=== PATIENT | female | born 1945 | race Hispanic/Latino ===

== ENCOUNTER 2017-06-26 13:09 | Inpatient (IN) | payer MEDICARE ==
[~2017-06-26] VITALS: Ht 154.9 cm; Wt 88.0 kg
[2017-06-26 14:00] LABS: BASOPHILS % (AUTO) 0.6 % (0.0-5.0); EOSINOPHILS % (AUTO) 2.8 % (0.0-8.0); HEMATOCRIT 25.8 % (36-48); LYMPHOCYTES % (AUTO) 10.8 % (21.0-51.0); MEAN CORPUSCULAR HEMOGLOBIN 33.7 pg (27.0-33.0); MEAN CORPUSCULAR HGB CONC 34.2 g/dL (32.0-36.0); MEAN CORPUSCULAR VOLUME 98.6 fL (79-99); NEUTROPHILS % (AUTO) 78.8 % (40.0-77.0); NUCLEATED RED BLOOD CELLS 0.3 % (0.0-0.19); PLATELET COUNT (AUTO) 513 K/uL (130-400); RED BLOOD CELL COUNT(AUTO) 2.61 MIL/uL (4.00-5.50); RED CELL DISTRIBUTION WIDTH 14.9 % (11.0-15.5); WHITE BLOOD COUNT (AUTO) 14.4 K/uL (4.8-10.8)
[2017-06-26 14:07] LABS: POTASSIUM 3.6 mmol/L (3.5-5.1)
[2017-06-26 14:17] LABS: ALBUMIN 2.3 g/dL (3.5-5.0); BILIRUBIN,TOTAL 0.3 mg/dL (0.2-1.0); TOTAL PROTEIN, SERUM 7.8 g/dL (6.0-8.3)
[2017-06-26] MEDS ORDERED: MORPHINE SULFATE 4 MG/1ML SYG ONE (15:25)
[2017-06-26] MEDS ORDERED: ONDANSETRON HCL MDV 20ML 2 MG/ML VIAL ONE (15:25)
[2017-06-26] MEDS ORDERED: ZOSYN 3.375GM+NS 50ML 50 ML IV SCH ×2 (15:45→21:00)
[2017-06-26] MEDS ORDERED: ZOSYN 3.375GM+NS 50ML 50 ML IV ONE (16:13)
[2017-06-26] MEDS ORDERED: HYDRALAZINE HCL 20 MG/ML VIAL IV PRN (17:00)
[2017-06-26] MEDS ORDERED: LACTULOSE 20 GM/30 ML UDCUP PO PRN (17:00)
[2017-06-26] MEDS ORDERED: VANCOMYCIN PROTOCOL PER PHARMACY IV PRN (17:00)
[2017-06-26] MEDS ORDERED: GUAIFENESIN-DM 200/20 MG 10 ML PO PRN (17:00)
[2017-06-26] MEDS ORDERED: VANCOMYCIN 1.5 GM in SODIUM CHLORIDE 0.9% 250 ML IV SCH (19:30)
[2017-06-26 22:45] VITALS: BP 139/68
[2017-06-27] VITALS (14 sets, daily range): BP systolic 76–168; BP diastolic 36–75
[2017-06-27] MEDS: HEPARIN SODIUM 5000UNIT/ML 1ML VIAL SQ SCH ×3 (00:17→22:19)
[2017-06-27] MEDS: INSULIN HUMULIN R 100 UNIT/ML 3ML SQ SCH ×4 (00:18→22:20)
[2017-06-27] MEDS ORDERED: CINA30 PO (00:45)
[2017-06-27] MEDS ORDERED: B,C/1TAB PO (00:49)
[2017-06-27] MEDS ORDERED: LOSA50TA37 PO (00:49)
[2017-06-27] MEDS ORDERED: AEC81 PO (00:49)
[2017-06-27] MEDS ORDERED: SODIUM CHLORIDE 0.9% 1000ML 2,000 ML IV ONE (04:46)
[2017-06-27 04:47] LABS: BASOPHILS % (AUTO) 0.6 % (0.0-5.0); HEMATOCRIT 25.8 % (36-48); LYMPHOCYTES % (AUTO) 12.8 % (21.0-51.0); MEAN CORPUSCULAR HGB CONC 33.8 g/dL (32.0-36.0); MEAN CORPUSCULAR VOLUME 97.5 fL (79-99); MONOCYTES % (AUTO) 5.3 % (3.0-13.0); NEUTROPHILS % (AUTO) 78.3 % (40.0-77.0); NUCLEATED RED BLOOD CELLS 0.3 % (0.0-0.19); PLATELET COUNT (AUTO) 447 K/uL (130-400); RED BLOOD CELL COUNT(AUTO) 2.65 MIL/uL (4.00-5.50); RED CELL DISTRIBUTION WIDTH 14.8 % (11.0-15.5)
[2017-06-27 05:03] LABS: INR 1.02 (0.85-1.15); PARTIAL THROMBOPLASTIN TIME 28.3 SEC (26.3-35.5); PROTHROMBIN TIME 10.7 SEC (9.6-11.6)
[2017-06-27 05:12] LABS: CREATININE 3.4 mg/dL (0.5-1.5)
[2017-06-27] MEDS ORDERED: 0.9% SODIUM CHLORIDE 250 ML IV BAG IV PRN (06:15)
[2017-06-27] MEDS ORDERED: SODIUM CHLORIDE 0.9% 1000ML 1,000 ML IV PRN (06:15)
[2017-06-27] MEDS ORDERED: VANCOMYCIN 1.5 GM in SODIUM CHLORIDE 0.9% 250 ML IV SCH (06:15)
[2017-06-27] MEDS ORDERED: ALBUMIN (HUMAN) 25% 100 ML IV PRN (06:15)
[2017-06-27] MEDS ORDERED: COMPOUND IV REFRIGERATED 1 EACH IVSOLN MISC PRN (06:30)
[2017-06-27] MEDS: PANTOPRAZOLE SODIUM 40 MG TABLET.DR PO SCH (11:56)
[2017-06-27] MEDS: ZOSYN 3.375GM+NS 50ML 50 ML IV SCH (11:56)
[2017-06-27] MEDS: ACETAMINOPHEN 325 MG TAB PO PRN (12:02)
[2017-06-27] MEDS ORDERED: DIPH,PERTUSS(ACELL),TET VAC/PF 0.5 ML VIAL IM SCH (15:30)
[2017-06-28] MEDS: ZOSYN 3.375GM+NS 50ML 50 ML IV SCH ×3 (00:05→21:42)
[2017-06-28 03:00] VITALS: BP 113/50
[2017-06-28 05:55] LABS: HEMATOCRIT 25.8 % (36-48); MEAN CORPUSCULAR HGB CONC 34.4 g/dL (32.0-36.0); MEAN CORPUSCULAR VOLUME 99.1 fL (79-99); NUCLEATED RED BLOOD CELLS 0.1 % (0.0-0.19); PLATELET COUNT (AUTO) 439 K/uL (130-400); RED CELL DISTRIBUTION WIDTH 14.7 % (11.0-15.5); WHITE BLOOD COUNT (AUTO) 14.3 K/uL (4.8-10.8)
[2017-06-28 06:04] LABS: CREATININE 4.8 mg/dL (0.5-1.5); POTASSIUM 3.6 mmol/L (3.5-5.1)
[2017-06-28] MEDS: INSULIN HUMULIN R 100 UNIT/ML 3ML SQ SCH ×4 (06:20→21:46)
[2017-06-28 08:00] VITALS: BP 127/48
[2017-06-28] MEDS: PANTOPRAZOLE SODIUM 40 MG TABLET.DR PO SCH (08:23)
[2017-06-28] MEDS: HEPARIN SODIUM 5000UNIT/ML 1ML VIAL SQ SCH ×2 (08:32→21:45)
[2017-06-28] MEDS ORDERED: PHARMACY COMMUNICATION MISC SCH (10:45)
[2017-06-28] MEDS: LACTOBACILLUS RHAMNOSUS GG 1 EACH CAP.SPRINK PO SCH (12:19)
[2017-06-28 13:57] VITALS: BP 138/52
[2017-06-28 16:00] VITALS: BP 149/67
[2017-06-28] MEDS ORDERED: LOPERAMIDE HCL 2 MG CAP PO ONE (17:05)
[2017-06-28] MEDS ORDERED: LOPERAMIDE HCL 2 MG CAP PO SCH (17:15)
[2017-06-28 19:55] VITALS: BP 138/59
[2017-06-28 23:54] VITALS: BP 136/56
[2017-06-29 04:27] VITALS: BP 129/47
[2017-06-29] MEDS ORDERED: HYDROCODONE/ACETAMINOPHEN 5/325 MG TAB ONE (04:50)
[2017-06-29] MEDS: INSULIN HUMULIN R 100 UNIT/ML 3ML SQ SCH ×4 (06:32→21:34)
[2017-06-29 07:12] LABS: BASOPHILS % (AUTO) 0.6 % (0.0-5.0); EOSINOPHILS % (AUTO) 2.9 % (0.0-8.0); HEMATOCRIT 25.3 % (36-48); LYMPHOCYTES % (AUTO) 12.8 % (21.0-51.0); MEAN CORPUSCULAR HEMOGLOBIN 33.5 pg (27.0-33.0); MEAN CORPUSCULAR HGB CONC 33.9 g/dL (32.0-36.0); MEAN CORPUSCULAR VOLUME 98.8 fL (79-99); NEUTROPHILS % (AUTO) 77.7 % (40.0-77.0); PLATELET COUNT (AUTO) 399 K/uL (130-400); RED BLOOD CELL COUNT(AUTO) 2.56 MIL/uL (4.00-5.50); RED CELL DISTRIBUTION WIDTH 15.1 % (11.0-15.5); WHITE BLOOD COUNT (AUTO) 13.6 K/uL (4.8-10.8)
[2017-06-29 07:24] LABS: CREATININE 6.6 mg/dL (0.5-1.5); POTASSIUM 3.8 mmol/L (3.5-5.1)
[2017-06-29 07:30] VITALS: BP 138/57
[2017-06-29] MEDS: PANTOPRAZOLE SODIUM 40 MG TABLET.DR PO SCH (10:17)
[2017-06-29] MEDS: LACTOBACILLUS RHAMNOSUS GG 1 EACH CAP.SPRINK PO SCH (10:18)
[2017-06-29] MEDS: ASPIRIN 81 MG EC TAB PO SCH (10:26)
[2017-06-29] MEDS: ZOSYN 3.375GM+NS 50ML 50 ML IV SCH ×2 (10:26→21:00)
[2017-06-29] MEDS: HEPARIN SODIUM 5000UNIT/ML 1ML VIAL SQ SCH ×2 (10:32→21:01)
[2017-06-29 12:00] VITALS: BP 144/66
[2017-06-29 16:00] VITALS: BP 119/52
[2017-06-29] MEDS: LOPERAMIDE HCL 2 MG CAP PO PRN ×2 (18:03→21:32)
[2017-06-29 20:09] VITALS: BP 124/48
[2017-06-29] MEDS: ACETAMINOPHEN 325 MG TAB PO PRN (21:33)
[2017-06-30 00:30] VITALS: BP 141/52
[2017-06-30 03:52] LABS: BASOPHILS % (AUTO) 0.5 % (0.0-5.0); EOSINOPHILS % (AUTO) 3.5 % (0.0-8.0); HEMATOCRIT 21.8 % (36-48); LYMPHOCYTES % (AUTO) 15.5 % (21.0-51.0); MEAN CORPUSCULAR HEMOGLOBIN 34.9 pg (27.0-33.0); MEAN CORPUSCULAR HGB CONC 35.5 g/dL (32.0-36.0); MEAN CORPUSCULAR VOLUME 98.1 fL (79-99); MONOCYTES % (AUTO) 7.5 % (3.0-13.0); PLATELET COUNT (AUTO) 335 K/uL (130-400); RED BLOOD CELL COUNT(AUTO) 2.22 MIL/uL (4.00-5.50); WHITE BLOOD COUNT (AUTO) 11.4 K/uL (4.8-10.8)
[2017-06-30 04:04] VITALS: BP 137/55
[2017-06-30 04:07] LABS: POTASSIUM 3.4 mmol/L (3.5-5.1)
[2017-06-30] MEDS: INSULIN HUMULIN R 100 UNIT/ML 3ML SQ SCH ×4 (06:35→20:10)
[2017-06-30 09:24] VITALS: BP 142/46
[2017-06-30] MEDS: ASPIRIN 81 MG EC TAB PO SCH (10:27)
[2017-06-30] MEDS: PANTOPRAZOLE SODIUM 40 MG TABLET.DR PO SCH (10:27)
[2017-06-30] MEDS: FOLIC ACID/VITAMIN B COMP W-C 1 MG CAPSULE PO SCH (10:27)
[2017-06-30] MEDS: LACTOBACILLUS RHAMNOSUS GG 1 EACH CAP.SPRINK PO SCH (10:27)
[2017-06-30] MEDS: LOSARTAN 50 MG TABLET PO SCH (10:27)
[2017-06-30] MEDS: ZOSYN 3.375GM+NS 50ML 50 ML IV SCH ×2 (10:27→20:08)
[2017-06-30] MEDS: CINACALCET HCL 30 MG TAB PO SCH (10:27)
[2017-06-30] MEDS: HYDROCODONE/ACETAMINOPHEN 5/325 MG TAB PO PRN (10:37)
[2017-06-30] MEDS: HEPARIN SODIUM 5000UNIT/ML 1ML VIAL SQ SCH ×2 (10:42→20:09)
[2017-06-30 12:35] VITALS: BP 152/59
[2017-06-30 16:00] VITALS: BP 126/50
[2017-06-30] MEDS: LEVOFLOXACIN 750 MG/D5W 150 ML 150 ML IV SCH (17:44)
[2017-06-30 20:00] VITALS: BP 143/53
[2017-06-30] MEDS: ACETAMINOPHEN 325 MG TAB PO PRN (22:49)
[2017-07-01] VITALS: BP 142/60
[2017-07-01 04:00] VITALS: BP 126/58
[2017-07-01 05:48] LABS: BASOPHILS % (AUTO) 0.4 % (0.0-5.0); EOSINOPHILS % (AUTO) 3.4 % (0.0-8.0); HEMATOCRIT 24.6 % (36-48); LYMPHOCYTES % (AUTO) 14.4 % (21.0-51.0); MEAN CORPUSCULAR HEMOGLOBIN 33.7 pg (27.0-33.0); MEAN CORPUSCULAR HGB CONC 34.7 g/dL (32.0-36.0); MEAN CORPUSCULAR VOLUME 97.2 fL (79-99); MONOCYTES % (AUTO) 8.4 % (3.0-13.0); NEUTROPHILS % (AUTO) 73.4 % (40.0-77.0); PLATELET COUNT (AUTO) 382 K/uL (130-400); RED BLOOD CELL COUNT(AUTO) 2.53 MIL/uL (4.00-5.50); WHITE BLOOD COUNT (AUTO) 10.1 K/uL (4.8-10.8)
[2017-07-01 06:08] LABS: CREATININE 5.5 mg/dL (0.5-1.5); POTASSIUM 3.7 mmol/L (3.5-5.1)
[2017-07-01] MEDS: INSULIN HUMULIN R 100 UNIT/ML 3ML SQ SCH ×4 (06:33→21:21)
[2017-07-01 08:00] VITALS: BP 150/63
[2017-07-01] MEDS: ZOSYN 3.375GM+NS 50ML 50 ML IV SCH ×2 (10:46→21:18)
[2017-07-01] MEDS: FOLIC ACID/VITAMIN B COMP W-C 1 MG CAPSULE PO SCH (10:47)
[2017-07-01] MEDS: LACTOBACILLUS RHAMNOSUS GG 1 EACH CAP.SPRINK PO SCH (10:47)
[2017-07-01] MEDS: CINACALCET HCL 30 MG TAB PO SCH (10:47)
[2017-07-01] MEDS: ATORVASTATIN CALCIUM 20 MG TABLET PO SCH (10:48)
[2017-07-01] MEDS: ASPIRIN 81 MG EC TAB PO SCH (10:48)
[2017-07-01] MEDS: LOSARTAN 50 MG TABLET PO SCH (10:48)
[2017-07-01] MEDS: PANTOPRAZOLE SODIUM 40 MG TABLET.DR PO SCH (10:48)
[2017-07-01] MEDS: HEPARIN SODIUM 5000UNIT/ML 1ML VIAL SQ SCH ×2 (11:40→21:20)
[2017-07-01 12:00] VITALS: BP 150/62
[2017-07-01] MEDS: ONDANSETRON HCL 4 MG/2 ML VIAL IV PRN (13:08)
[2017-07-01 16:00] VITALS: BP 132/49
[2017-07-01 19:36] VITALS: BP 146/66
[2017-07-01] MEDS: HYDROCODONE/ACETAMINOPHEN 5/325 MG TAB PO PRN (21:22)
[2017-07-02] VITALS (7 sets, daily range): BP systolic 123–153; BP diastolic 46–67
[2017-07-02 04:39] LABS: BASOPHILS % (AUTO) 0.5 % (0.0-5.0); EOSINOPHILS % (AUTO) 2.7 % (0.0-8.0); HEMATOCRIT 24.1 % (36-48); LYMPHOCYTES % (AUTO) 17.4 % (21.0-51.0); MEAN CORPUSCULAR HEMOGLOBIN 34.6 pg (27.0-33.0); MEAN CORPUSCULAR HGB CONC 35.8 g/dL (32.0-36.0); MEAN CORPUSCULAR VOLUME 96.9 fL (79-99); MONOCYTES % (AUTO) 8.4 % (3.0-13.0); PLATELET COUNT (AUTO) 394 K/uL (130-400); RED BLOOD CELL COUNT(AUTO) 2.49 MIL/uL (4.00-5.50); RED CELL DISTRIBUTION WIDTH 15.2 % (11.0-15.5); WHITE BLOOD COUNT (AUTO) 10.5 K/uL (4.8-10.8)
[2017-07-02 05:29] LABS: POTASSIUM 3.8 mmol/L (3.5-5.1)
[2017-07-02] MEDS: INSULIN HUMULIN R 100 UNIT/ML 3ML SQ SCH ×4 (06:13→21:27)
[2017-07-02] MEDS: HEPARIN SODIUM 5000UNIT/ML 1ML VIAL SQ SCH ×2 (08:06→21:33)
[2017-07-02] MEDS: ZOSYN 3.375GM+NS 50ML 50 ML IV SCH ×2 (08:22→21:35)
[2017-07-02] MEDS: ATORVASTATIN CALCIUM 20 MG TABLET PO SCH (08:23)
[2017-07-02] MEDS: FOLIC ACID/VITAMIN B COMP W-C 1 MG CAPSULE PO SCH (08:23)
[2017-07-02] MEDS: LOSARTAN 50 MG TABLET PO SCH (08:23)
[2017-07-02] MEDS: LACTOBACILLUS RHAMNOSUS GG 1 EACH CAP.SPRINK PO SCH (08:23)
[2017-07-02] MEDS: PANTOPRAZOLE SODIUM 40 MG TABLET.DR PO SCH (08:24)
[2017-07-02] MEDS: CINACALCET HCL 30 MG TAB PO SCH (08:24)
[2017-07-02] MEDS: ASPIRIN 81 MG EC TAB PO SCH (08:24)
[2017-07-02] MEDS: ONDANSETRON HCL 4 MG/2 ML VIAL IV PRN (12:54)
[2017-07-02] MEDS ORDERED: ALBUMIN (HUMAN) 25% 100 ML IV PRN (14:00)
[2017-07-02] MEDS ORDERED: 0.9% SODIUM CHLORIDE 250 ML IV BAG IV PRN (14:00)
[2017-07-02] MEDS: LEVOFLOXACIN 750 MG/D5W 150 ML 150 ML IV SCH (17:38)
[2017-07-02] MEDS: ZOLPIDEM TARTRATE 5 MG TAB PO PRN (21:31)
[2017-07-02] MEDS: HYDROCODONE/ACETAMINOPHEN 5/325 MG TAB PO PRN (21:32)
[2017-07-03 04:33] VITALS: BP 135/62
[2017-07-03 04:56] LABS: BASOPHILS % (AUTO) 0.5 % (0.0-5.0); EOSINOPHILS % (AUTO) 2.6 % (0.0-8.0); HEMATOCRIT 25.6 % (36-48); MEAN CORPUSCULAR HEMOGLOBIN 33.5 pg (27.0-33.0); MEAN CORPUSCULAR HGB CONC 34.9 g/dL (32.0-36.0); MEAN CORPUSCULAR VOLUME 95.9 fL (79-99); MONOCYTES % (AUTO) 8.1 % (3.0-13.0); NEUTROPHILS % (AUTO) 74.8 % (40.0-77.0); PLATELET COUNT (AUTO) 361 K/uL (130-400); RED BLOOD CELL COUNT(AUTO) 2.67 MIL/uL (4.00-5.50); RED CELL DISTRIBUTION WIDTH 15.5 % (11.0-15.5); WHITE BLOOD COUNT (AUTO) 8.5 K/uL (4.8-10.8)
[2017-07-03 05:06] LABS: CREATININE 4.6 mg/dL (0.5-1.5); POTASSIUM 3.4 mmol/L (3.5-5.1)
[2017-07-03] MEDS: INSULIN HUMULIN R 100 UNIT/ML 3ML SQ SCH ×4 (06:52→20:52)
[2017-07-03 08:00] VITALS: BP 141/58
[2017-07-03] MEDS: HEPARIN SODIUM 5000UNIT/ML 1ML VIAL SQ SCH ×2 (08:42→21:00)
[2017-07-03] MEDS: FOLIC ACID/VITAMIN B COMP W-C 1 MG CAPSULE PO SCH (08:52)
[2017-07-03] MEDS: ZOSYN 3.375GM+NS 50ML 50 ML IV SCH ×2 (08:52→21:08)
[2017-07-03] MEDS: LACTOBACILLUS RHAMNOSUS GG 1 EACH CAP.SPRINK PO SCH (08:52)
[2017-07-03] MEDS: CINACALCET HCL 30 MG TAB PO SCH (08:52)
[2017-07-03] MEDS: LOSARTAN 50 MG TABLET PO SCH (08:53)
[2017-07-03] MEDS: ATORVASTATIN CALCIUM 20 MG TABLET PO SCH (08:53)
[2017-07-03] MEDS: ASPIRIN 81 MG EC TAB PO SCH (08:53)
[2017-07-03] MEDS: PANTOPRAZOLE SODIUM 40 MG TABLET.DR PO SCH (08:53)
[2017-07-03 12:00] VITALS: BP 142/61
[2017-07-03 16:00] VITALS: BP 136/63
[2017-07-03 19:53] VITALS: BP 134/55
[2017-07-03] MEDS: ZOLPIDEM TARTRATE 5 MG TAB PO PRN (21:56)
[2017-07-03] MEDS: HYDROCODONE/ACETAMINOPHEN 5/325 MG TAB PO PRN (21:57)
[2017-07-03 23:24] VITALS: BP 134/56
[2017-07-04] VITALS (18 sets, daily range): BP systolic 135–161; BP diastolic 50–74
[2017-07-04] MEDS: ONDANSETRON HCL 4 MG/2 ML VIAL IV PRN (03:56)
[2017-07-04 04:23] LABS: BASOPHILS % (AUTO) 0.7 % (0.0-5.0); EOSINOPHILS % (AUTO) 2.5 % (0.0-8.0); HEMATOCRIT 24.6 % (36-48); LYMPHOCYTES % (AUTO) 18.7 % (21.0-51.0); MEAN CORPUSCULAR HEMOGLOBIN 34.9 pg (27.0-33.0); MEAN CORPUSCULAR HGB CONC 36.3 g/dL (32.0-36.0); MEAN CORPUSCULAR VOLUME 96.1 fL (79-99); MONOCYTES % (AUTO) 9.2 % (3.0-13.0); NEUTROPHILS % (AUTO) 68.9 % (40.0-77.0); NUCLEATED RED BLOOD CELLS 0.1 % (0.0-0.19); PLATELET COUNT (AUTO) 340 K/uL (130-400); RED BLOOD CELL COUNT(AUTO) 2.56 MIL/uL (4.00-5.50); RED CELL DISTRIBUTION WIDTH 15.3 % (11.0-15.5); WHITE BLOOD COUNT (AUTO) 8.7 K/uL (4.8-10.8)
[2017-07-04 04:35] LABS: CREATININE 6.2 mg/dL (0.5-1.5); POTASSIUM 3.5 mmol/L (3.5-5.1)
[2017-07-04] MEDS: INSULIN HUMULIN R 100 UNIT/ML 3ML SQ SCH ×4 (05:46→21:00)
[2017-07-04] MEDS: HEPARIN SODIUM 5000UNIT/ML 1ML VIAL SQ SCH ×2 (08:10→21:00)
[2017-07-04] MEDS: ZOSYN 3.375GM+NS 50ML 50 ML IV SCH (08:53)
[2017-07-04] MEDS: SODIUM CHLORIDE 0.9% 1000ML 1,000 ML IV PRN ×2 (08:54→09:40)
[2017-07-04] MEDS: ASPIRIN 81 MG EC TAB PO SCH (09:00)
[2017-07-04] MEDS ORDERED: MIDAZOLAM HCL 1 MG/ML 2ML VIAL ONE (09:48)
[2017-07-04] MEDS ORDERED: FENTANYL CITRATE PF 50 MCG/1 ML 2ML VIAL ONE (09:52)
[2017-07-04] MEDS ORDERED: LIDOCAINE HCL 1% MDV 50ML VIAL ONE (10:04)
[2017-07-04] MEDS: LOSARTAN 50 MG TABLET PO SCH (13:11)
[2017-07-04] MEDS: CINACALCET HCL 30 MG TAB PO SCH (13:11)
[2017-07-04] MEDS: HYDROCODONE/ACETAMINOPHEN 5/325 MG TAB PO PRN (13:11)
[2017-07-04] MEDS: LACTOBACILLUS RHAMNOSUS GG 1 EACH CAP.SPRINK PO SCH (13:11)
[2017-07-04] MEDS: FOLIC ACID/VITAMIN B COMP W-C 1 MG CAPSULE PO SCH (13:11)
[2017-07-04] MEDS: PANTOPRAZOLE SODIUM 40 MG TABLET.DR PO SCH (13:12)
[2017-07-04] MEDS: ATORVASTATIN CALCIUM 20 MG TABLET PO SCH (13:12)
[2017-07-04] MEDS: LEVOFLOXACIN 750 MG/D5W 150 ML 150 ML IV SCH (15:22)
[2017-07-05] VITALS: BP 133/61
[2017-07-05] MEDS: HYDROMORPHONE 1 MG/1 ML AMP IVP PRN ×2 (00:12→20:50)
[2017-07-05] MEDS: ZOSYN 3.375GM+NS 50ML 50 ML IV SCH ×3 (00:12→20:49)
[2017-07-05 04:00] VITALS: BP 142/56
[2017-07-05 04:48] LABS: BASOPHILS % (AUTO) 0.5 % (0.0-5.0); EOSINOPHILS % (AUTO) 1.6 % (0.0-8.0); HEMATOCRIT 25.4 % (36-48); LYMPHOCYTES % (AUTO) 9.1 % (21.0-51.0); MEAN CORPUSCULAR HEMOGLOBIN 33.2 pg (27.0-33.0); MEAN CORPUSCULAR HGB CONC 34.9 g/dL (32.0-36.0); MEAN CORPUSCULAR VOLUME 95.1 fL (79-99); MONOCYTES % (AUTO) 6.7 % (3.0-13.0); NEUTROPHILS % (AUTO) 82.1 % (40.0-77.0); PLATELET COUNT (AUTO) 338 K/uL (130-400); RED BLOOD CELL COUNT(AUTO) 2.67 MIL/uL (4.00-5.50); RED CELL DISTRIBUTION WIDTH 15.3 % (11.0-15.5); WHITE BLOOD COUNT (AUTO) 11.2 K/uL (4.8-10.8)
[2017-07-05 04:58] LABS: CREATININE 4.1 mg/dL (0.5-1.5); POTASSIUM 3.5 mmol/L (3.5-5.1)
[2017-07-05] MEDS: INSULIN HUMULIN R 100 UNIT/ML 3ML SQ SCH ×4 (06:13→21:32)
[2017-07-05 08:13] VITALS: BP 134/54
[2017-07-05] MEDS: LOSARTAN 50 MG TABLET PO SCH (09:23)
[2017-07-05] MEDS: ATORVASTATIN CALCIUM 20 MG TABLET PO SCH (09:23)
[2017-07-05] MEDS: LACTOBACILLUS RHAMNOSUS GG 1 EACH CAP.SPRINK PO SCH (09:23)
[2017-07-05] MEDS: ASPIRIN 81 MG EC TAB PO SCH (09:23)
[2017-07-05] MEDS: PANTOPRAZOLE SODIUM 40 MG TABLET.DR PO SCH (09:23)
[2017-07-05] MEDS: FOLIC ACID/VITAMIN B COMP W-C 1 MG CAPSULE PO SCH (09:23)
[2017-07-05] MEDS: CINACALCET HCL 30 MG TAB PO SCH (09:23)
[2017-07-05] MEDS: HEPARIN SODIUM 5000UNIT/ML 1ML VIAL SQ SCH ×2 (09:36→20:48)
[2017-07-05 12:06] VITALS: BP 128/44
[2017-07-05] MEDS: HYDROCODONE/ACETAMINOPHEN 5/325 MG TAB PO PRN (13:32)
[2017-07-05 16:41] VITALS: BP 122/48
[2017-07-05] MEDS: METOCLOPRAMIDE 5 MG TABLET PO SCH (17:03)
[2017-07-05 19:00] VITALS: BP 133/50
[2017-07-05] MEDS: ZOLPIDEM TARTRATE 5 MG TAB PO PRN (20:49)
[2017-07-05] MEDS: LOPERAMIDE HCL 2 MG CAP PO PRN (20:49)
[2017-07-06] VITALS: BP 113/43
[2017-07-06 04:00] VITALS: BP 111/59
[2017-07-06 05:42] LABS: BASOPHILS % (AUTO) 0.8 % (0.0-5.0); EOSINOPHILS % (AUTO) 2.8 % (0.0-8.0); HEMATOCRIT 23.2 % (36-48); LYMPHOCYTES % (AUTO) 16.8 % (21.0-51.0); MEAN CORPUSCULAR HEMOGLOBIN 34.5 pg (27.0-33.0); MEAN CORPUSCULAR VOLUME 95.6 fL (79-99); MONOCYTES % (AUTO) 10.6 % (3.0-13.0); PLATELET COUNT (AUTO) 297 K/uL (130-400); RED BLOOD CELL COUNT(AUTO) 2.43 MIL/uL (4.00-5.50); RED CELL DISTRIBUTION WIDTH 15.1 % (11.0-15.5); WHITE BLOOD COUNT (AUTO) 7.5 K/uL (4.8-10.8)
[2017-07-06 05:50] LABS: CREATININE 5.9 mg/dL (0.5-1.5); POTASSIUM 3.4 mmol/L (3.5-5.1)
[2017-07-06] MEDS: INSULIN HUMULIN R 100 UNIT/ML 3ML SQ SCH ×4 (06:05→21:00)
[2017-07-06 07:44] VITALS: BP 126/50
[2017-07-06] MEDS: METOCLOPRAMIDE 5 MG TABLET PO SCH ×3 (10:33→17:35)
[2017-07-06] MEDS: FOLIC ACID/VITAMIN B COMP W-C 1 MG CAPSULE PO SCH (10:33)
[2017-07-06] MEDS: ASPIRIN 81 MG EC TAB PO SCH (10:33)
[2017-07-06] MEDS: LOSARTAN 50 MG TABLET PO SCH (10:33)
[2017-07-06] MEDS: LACTOBACILLUS RHAMNOSUS GG 1 EACH CAP.SPRINK PO SCH (10:33)
[2017-07-06] MEDS: ZOSYN 3.375GM+NS 50ML 50 ML IV SCH ×2 (10:33→20:58)
[2017-07-06] MEDS: PANTOPRAZOLE SODIUM 40 MG TABLET.DR PO SCH (10:33)
[2017-07-06] MEDS: ATORVASTATIN CALCIUM 20 MG TABLET PO SCH (10:33)
[2017-07-06] MEDS: CINACALCET HCL 30 MG TAB PO SCH (10:36)
[2017-07-06] MEDS: HEPARIN SODIUM 5000UNIT/ML 1ML VIAL SQ SCH ×2 (10:47→20:51)
[2017-07-06 11:49] VITALS: BP 134/57
[2017-07-06] MEDS: LEVOFLOXACIN 750 MG/D5W 150 ML 150 ML IV SCH (14:46)
[2017-07-06] MEDS: HYDROMORPHONE 1 MG/1 ML AMP IVP PRN ×2 (14:47→20:58)
[2017-07-06 16:57] VITALS: BP 117/62
[2017-07-06 19:00] VITALS: BP 113/63
[2017-07-06] MEDS: ZOLPIDEM TARTRATE 5 MG TAB PO PRN (20:53)
[2017-07-07] VITALS: BP 132/49
[2017-07-07 04:00] VITALS: BP 144/60
[2017-07-07 07:33] LABS: BASOPHILS % (AUTO) 0.8 % (0.0-5.0); EOSINOPHILS % (AUTO) 2.8 % (0.0-8.0); HEMATOCRIT 23.5 % (36-48); LYMPHOCYTES % (AUTO) 18.1 % (21.0-51.0); MEAN CORPUSCULAR HEMOGLOBIN 32.8 pg (27.0-33.0); MEAN CORPUSCULAR HGB CONC 34.5 g/dL (32.0-36.0); MEAN CORPUSCULAR VOLUME 95.1 fL (79-99); MONOCYTES % (AUTO) 7.6 % (3.0-13.0); NEUTROPHILS % (AUTO) 70.7 % (40.0-77.0); PLATELET COUNT (AUTO) 324 K/uL (130-400); RED BLOOD CELL COUNT(AUTO) 2.47 MIL/uL (4.00-5.50); RED CELL DISTRIBUTION WIDTH 15.3 % (11.0-15.5); WHITE BLOOD COUNT (AUTO) 7.1 K/uL (4.8-10.8)
[2017-07-07 07:40] LABS: CREATININE 7.4 mg/dL (0.5-1.5); POTASSIUM 3.8 mmol/L (3.5-5.1)
[2017-07-07] MEDS: INSULIN HUMULIN R 100 UNIT/ML 3ML SQ SCH ×4 (07:50→22:41)
[2017-07-07] MEDS: METOCLOPRAMIDE 5 MG TABLET PO SCH ×3 (07:51→17:17)
[2017-07-07 07:58] VITALS: BP 146/68
[2017-07-07] MEDS: HEPARIN SODIUM 5000UNIT/ML 1ML VIAL SQ SCH ×2 (09:06→22:42)
[2017-07-07] MEDS: ASPIRIN 81 MG EC TAB PO SCH (09:10)
[2017-07-07] MEDS: CINACALCET HCL 30 MG TAB PO SCH (09:10)
[2017-07-07] MEDS: LACTOBACILLUS RHAMNOSUS GG 1 EACH CAP.SPRINK PO SCH (09:10)
[2017-07-07] MEDS: FOLIC ACID/VITAMIN B COMP W-C 1 MG CAPSULE PO SCH (09:10)
[2017-07-07] MEDS: ATORVASTATIN CALCIUM 20 MG TABLET PO SCH (09:10)
[2017-07-07] MEDS: LOSARTAN 50 MG TABLET PO SCH (09:10)
[2017-07-07] MEDS: PANTOPRAZOLE SODIUM 40 MG TABLET.DR PO SCH (09:11)
[2017-07-07] MEDS: ZOSYN 3.375GM+NS 50ML 50 ML IV SCH ×2 (09:11→22:43)
[2017-07-07 11:36] VITALS: BP 166/73
[2017-07-07] MEDS: HYDROCODONE/ACETAMINOPHEN 5/325 MG TAB PO PRN (12:16)
[2017-07-07 16:03] VITALS: BP 174/68
[2017-07-07 19:15] VITALS: BP 130/56
[2017-07-08 00:02] VITALS: BP 137/63
[2017-07-08 04:36] VITALS: BP 114/41
[2017-07-08] MEDS: INSULIN HUMULIN R 100 UNIT/ML 3ML SQ SCH ×4 (07:30→21:19)
[2017-07-08 08:00] VITALS: BP 125/42
[2017-07-08] MEDS: ZOSYN 3.375GM+NS 50ML 50 ML IV SCH ×2 (11:44→21:10)
[2017-07-08] MEDS: METOCLOPRAMIDE 5 MG TABLET PO SCH ×3 (11:44→17:17)
[2017-07-08] MEDS: PANTOPRAZOLE SODIUM 40 MG TABLET.DR PO SCH (11:44)
[2017-07-08] MEDS: ATORVASTATIN CALCIUM 20 MG TABLET PO SCH (11:44)
[2017-07-08] MEDS: LACTOBACILLUS RHAMNOSUS GG 1 EACH CAP.SPRINK PO SCH (11:45)
[2017-07-08] MEDS: CINACALCET HCL 30 MG TAB PO SCH (11:45)
[2017-07-08] MEDS: LOSARTAN 50 MG TABLET PO SCH (11:45)
[2017-07-08] MEDS: FOLIC ACID/VITAMIN B COMP W-C 1 MG CAPSULE PO SCH (11:45)
[2017-07-08] MEDS: ASPIRIN 81 MG EC TAB PO SCH (11:46)
[2017-07-08 11:53] VITALS: BP 143/53
[2017-07-08] MEDS: HEPARIN SODIUM 5000UNIT/ML 1ML VIAL SQ SCH ×2 (12:07→21:15)
[2017-07-08] MEDS: HYDROCODONE/ACETAMINOPHEN 5/325 MG TAB PO PRN (13:40)
[2017-07-08 16:00] VITALS: BP 123/58
[2017-07-08] MEDS: LEVOFLOXACIN 750 MG/D5W 150 ML 150 ML IV SCH (17:17)
[2017-07-08 20:37] VITALS: BP 134/55
[2017-07-08] MEDS: ZOLPIDEM TARTRATE 5 MG TAB PO PRN (21:09)
[2017-07-09] VITALS (22 sets, daily range): BP systolic 121–167; BP diastolic 48–72
[2017-07-09] MEDS: METOCLOPRAMIDE 5 MG TABLET PO SCH ×3 (06:34→16:56)
[2017-07-09] MEDS: INSULIN HUMULIN R 100 UNIT/ML 3ML SQ SCH ×4 (06:34→21:00)
[2017-07-09] MEDS: SODIUM CHLORIDE 0.9% 1000ML 1,000 ML IV PRN (07:05)
[2017-07-09] MEDS ORDERED: FENTANYL CITRATE PF 50 MCG/1 ML 2ML VIAL ONE (07:22)
[2017-07-09] MEDS ORDERED: MIDAZOLAM HCL 1 MG/ML 2ML VIAL ONE (07:22)
[2017-07-09] MEDS ORDERED: PROPOFOL 10 MG/ML 20ML VIAL IV ONE (07:23)
[2017-07-09] MEDS ORDERED: LIDOCAINE HCL 1% 20 ML VIAL ONE (08:06)
[2017-07-09] MEDS ORDERED: NEOMY SULF/POLYMYXIN B SULFATE 1 ML AMPUL IR ONE (08:07)
[2017-07-09] MEDS ORDERED: MEPERIDINE-PF 25 MG/ML SYG ONE (08:45)
[2017-07-09] MEDS: HEPARIN SODIUM 5000UNIT/ML 1ML VIAL SQ SCH ×2 (09:00→23:18)
[2017-07-09] MEDS: ZOSYN 3.375GM+NS 50ML 50 ML IV SCH ×2 (09:03→22:54)
[2017-07-09] MEDS: ASPIRIN 81 MG EC TAB PO SCH (10:24)
[2017-07-09] MEDS: ATORVASTATIN CALCIUM 20 MG TABLET PO SCH (10:24)
[2017-07-09] MEDS: CINACALCET HCL 30 MG TAB PO SCH (10:24)
[2017-07-09] MEDS: FOLIC ACID/VITAMIN B COMP W-C 1 MG CAPSULE PO SCH (10:24)
[2017-07-09] MEDS: LOSARTAN 50 MG TABLET PO SCH (10:24)
[2017-07-09] MEDS: LACTOBACILLUS RHAMNOSUS GG 1 EACH CAP.SPRINK PO SCH (10:24)
[2017-07-09] MEDS: PANTOPRAZOLE SODIUM 40 MG TABLET.DR PO SCH (10:24)
[2017-07-09] MEDS ORDERED: ROPIVACAINE 0.5% 5MG/ML 30ML IJ ONE (16:01)
[2017-07-09] MEDS: HYDROCODONE/ACETAMINOPHEN 5/325 MG TAB PO PRN (16:56)
[2017-07-10] MEDS: HYDROCODONE/ACETAMINOPHEN 5/325 MG TAB PO PRN ×2 (00:47→12:56)
[2017-07-10] MEDS: ZOLPIDEM TARTRATE 5 MG TAB PO PRN (02:17)
[2017-07-10 04:00] VITALS: BP 122/59
[2017-07-10 04:48] LABS: HEMATOCRIT 23.8 % (36-48); MEAN CORPUSCULAR HEMOGLOBIN 33.5 pg (27.0-33.0); MEAN CORPUSCULAR HGB CONC 35.2 g/dL (32.0-36.0); PLATELET COUNT (AUTO) 295 K/uL (130-400); RED BLOOD CELL COUNT(AUTO) 2.51 MIL/uL (4.00-5.50); RED CELL DISTRIBUTION WIDTH 15.5 % (11.0-15.5); WHITE BLOOD COUNT (AUTO) 7.3 K/uL (4.8-10.8)
[2017-07-10 05:02] LABS: ALBUMIN 2.1 g/dL (3.5-5.0); BILIRUBIN,TOTAL 0.3 mg/dL (0.2-1.0)
[2017-07-10] MEDS: INSULIN HUMULIN R 100 UNIT/ML 3ML SQ SCH ×3 (05:47→17:37)
[2017-07-10] MEDS: METOCLOPRAMIDE 5 MG TABLET PO SCH ×3 (06:13→17:29)
[2017-07-10 07:00] VITALS: BP 153/70
[2017-07-10] MEDS: ZOSYN 3.375GM+NS 50ML 50 ML IV SCH (09:05)
[2017-07-10] MEDS: LOSARTAN 50 MG TABLET PO SCH (09:07)
[2017-07-10] MEDS: CINACALCET HCL 30 MG TAB PO SCH (09:07)
[2017-07-10] MEDS: PANTOPRAZOLE SODIUM 40 MG TABLET.DR PO SCH (09:07)
[2017-07-10] MEDS: ATORVASTATIN CALCIUM 20 MG TABLET PO SCH (09:07)
[2017-07-10] MEDS: FOLIC ACID/VITAMIN B COMP W-C 1 MG CAPSULE PO SCH (09:07)
[2017-07-10] MEDS: ASPIRIN 81 MG EC TAB PO SCH (09:07)
[2017-07-10] MEDS: LACTOBACILLUS RHAMNOSUS GG 1 EACH CAP.SPRINK PO SCH (09:07)
[2017-07-10] MEDS: HEPARIN SODIUM 5000UNIT/ML 1ML VIAL SQ SCH (10:02)
[2017-07-10 11:00] VITALS: BP 104/45
[2017-07-10] MEDS: LEVOFLOXACIN 750 MG/D5W 150 ML 150 ML IV SCH (15:48)
[2017-07-10 15:50] VITALS: BP 139/60
== END 2017-07-10 20:15 | DRG 853 ==
LOC: EDH 13:09 → EDHIP 16:59 → 3AH 20:51
PROVIDERS: ADMIT Family Medicine; ATTEND Family Medicine
PROC: 5A1D70Z Performance of Urinary Filtration, Intermittent, Less than 6 Hours Per Day (ICD-10-PCS; 2017-06-27)
PROC: 3E0234Z Introduction of Serum, Toxoid and Vaccine into Muscle, Percutaneous Approach (ICD-10-PCS; 2017-06-27)
PROC: 5A1D70Z Performance of Urinary Filtration, Intermittent, Less than 6 Hours Per Day (ICD-10-PCS; 2017-06-30)
PROC: 5A1D70Z Performance of Urinary Filtration, Intermittent, Less than 6 Hours Per Day (ICD-10-PCS; 2017-07-02)
PROC: 3E1038Z Irrigation of Skin and Mucous Membranes using Irrigating Substance, Percutaneous Approach (ICD-10-PCS; 2017-07-02)
PROC: 0JBR0ZZ Excision of Left Foot Subcutaneous Tissue and Fascia, Open Approach (ICD-10-PCS; 2017-07-04)
PROC: 5A1D70Z Performance of Urinary Filtration, Intermittent, Less than 6 Hours Per Day (ICD-10-PCS; 2017-07-04)
PROC: 5A1D70Z Performance of Urinary Filtration, Intermittent, Less than 6 Hours Per Day (ICD-10-PCS; 2017-07-07)
PROC: 5A1D70Z Performance of Urinary Filtration, Intermittent, Less than 6 Hours Per Day (ICD-10-PCS; 2017-07-09)
PROC: 0H9NXZZ Drainage of Left Foot Skin, External Approach (ICD-10-PCS; 2017-07-09)
PROC: 0JBR0ZZ Excision of Left Foot Subcutaneous Tissue and Fascia, Open Approach (ICD-10-PCS; principal; 2017-07-09 07:50)
DX: A41.9 Sepsis, unspecified organism (principal); N18.6 End stage renal disease; E11.21 Type 2 diabetes mellitus with diabetic nephropathy; E11.42 Type 2 diabetes mellitus with diabetic polyneuropathy; E11.52 Type 2 diabetes mellitus with diabetic peripheral angiopathy with gangrene; I12.0 Hypertensive chronic kidney disease with stage 5 chronic kidney disease or end stage renal disease; E44.1 Mild protein-calorie malnutrition; L03.116 Cellulitis of left lower limb; M86.9 Osteomyelitis, unspecified; L97.429 Non-pressure chronic ulcer of left heel and midfoot with unspecified severity; D63.1 Anemia in chronic kidney disease; E11.22 Type 2 diabetes mellitus with diabetic chronic kidney disease; E11.621 Type 2 diabetes mellitus with foot ulcer; E11.65 Type 2 diabetes mellitus with hyperglycemia; E11.69 Type 2 diabetes mellitus with other specified complication; E66.9 Obesity, unspecified; E78.5 Hyperlipidemia, unspecified; E87.6 Hypokalemia; I70.209 Unspecified atherosclerosis of native arteries of extremities, unspecified extremity; L97.529 Non-pressure chronic ulcer of other part of left foot with unspecified severity; Z68.36 Body mass index [BMI] 36.0-36.9, adult; Z23 Encounter for immunization; Z99.2 Dependence on renal dialysis; Z98.61 Coronary angioplasty status; Z89.512 Acquired absence of left leg below knee; Z89.411 Acquired absence of right great toe; Z83.3 Family history of diabetes mellitus; Z80.3 Family history of malignant neoplasm of breast; Z80.0 Family history of malignant neoplasm of digestive organs
CPT/HCPCS: 36415; 73620; 73718; 80048; 80053; 80202; 82948; 83735; 84132; 85025; 85027; 85610; 85730; 87040; 87070; 87076; 87077; 87186; 87324; 88304; 90715; 90935; 93926; J1170; J1644; J1815; J1956; J2175; J2250; J2270; J2405; J2543; J2704; J2795; J3010; J3370; J3490; J7030; P9046

== ENCOUNTER → 2017-08-06 | Outpatient (CLI) | payer MEDICARE ==
[~2017-08-06] MED LIST: AEC81 PO; B,C/1TAB PO; CINA30 PO; LOSA50TA37 PO
[2017-08-06 16:41] VITALS: BP 181/74
== END | disposition home or self-care (01) ==
LOC: WHH 10:00
PROVIDERS: ATTEND Podiatrist Foot & Ankle Surgery
DX: E11.621 Type 2 diabetes mellitus with foot ulcer (principal); L97.521 Non-pressure chronic ulcer of other part of left foot limited to breakdown of skin; E11.69 Type 2 diabetes mellitus with other specified complication; M86.8X7 Other osteomyelitis, ankle and foot; E11.42 Type 2 diabetes mellitus with diabetic polyneuropathy; E11.21 Type 2 diabetes mellitus with diabetic nephropathy; E11.65 Type 2 diabetes mellitus with hyperglycemia; I70.209 Unspecified atherosclerosis of native arteries of extremities, unspecified extremity; E11.52 Type 2 diabetes mellitus with diabetic peripheral angiopathy with gangrene; I96 Gangrene, not elsewhere classified; E11.22 Type 2 diabetes mellitus with diabetic chronic kidney disease; I12.0 Hypertensive chronic kidney disease with stage 5 chronic kidney disease or end stage renal disease; N18.6 End stage renal disease; Z99.2 Dependence on renal dialysis; E78.5 Hyperlipidemia, unspecified; E66.9 Obesity, unspecified; Z89.512 Acquired absence of left leg below knee; Z89.411 Acquired absence of right great toe; Z68.36 Body mass index [BMI] 36.0-36.9, adult; Z98.61 Coronary angioplasty status
CPT/HCPCS: 11042; 11045; 97606

== ENCOUNTER → 2017-10-01 | Outpatient (CLI) | payer MEDICARE ==
[~2017-10-01] MED LIST changes: +LOSA50TA25 PO; -LOSA50TA37 PO
[2017-10-01 13:17] VITALS: BP 158/53
== END | disposition home or self-care (01) ==
LOC: WHH 09:45
PROVIDERS: ATTEND Podiatrist Foot & Ankle Surgery
DX: E11.621 Type 2 diabetes mellitus with foot ulcer (principal); L97.421 Non-pressure chronic ulcer of left heel and midfoot limited to breakdown of skin; E11.622 Type 2 diabetes mellitus with other skin ulcer; L97.321 Non-pressure chronic ulcer of left ankle limited to breakdown of skin; E11.52 Type 2 diabetes mellitus with diabetic peripheral angiopathy with gangrene; I96 Gangrene, not elsewhere classified; E11.22 Type 2 diabetes mellitus with diabetic chronic kidney disease; I12.0 Hypertensive chronic kidney disease with stage 5 chronic kidney disease or end stage renal disease; N18.6 End stage renal disease; E66.9 Obesity, unspecified; E11.69 Type 2 diabetes mellitus with other specified complication; M86.8X7 Other osteomyelitis, ankle and foot; E11.42 Type 2 diabetes mellitus with diabetic polyneuropathy; E11.21 Type 2 diabetes mellitus with diabetic nephropathy; E78.5 Hyperlipidemia, unspecified; B35.1 Tinea unguium; Z89.512 Acquired absence of left leg below knee; Z89.421 Acquired absence of other right toe(s); Z89.411 Acquired absence of right great toe; Z68.36 Body mass index [BMI] 36.0-36.9, adult; Z79.4 Long term (current) use of insulin; Z99.2 Dependence on renal dialysis; Z98.61 Coronary angioplasty status
CPT/HCPCS: 11042; 11045 ×2; 11721; 97606; A6022

== ENCOUNTER → 2017-10-15 | Outpatient (CLI) | payer MEDICARE ==
[2017-10-15 13:30] VITALS: BP 165/67
== END | disposition home or self-care (01) ==
LOC: WHH 10:00
PROVIDERS: ATTEND Podiatrist Foot & Ankle Surgery
DX: E11.621 Type 2 diabetes mellitus with foot ulcer (principal); L97.521 Non-pressure chronic ulcer of other part of left foot limited to breakdown of skin; E11.622 Type 2 diabetes mellitus with other skin ulcer; L97.321 Non-pressure chronic ulcer of left ankle limited to breakdown of skin; E11.52 Type 2 diabetes mellitus with diabetic peripheral angiopathy with gangrene; I96 Gangrene, not elsewhere classified; E11.22 Type 2 diabetes mellitus with diabetic chronic kidney disease; I12.0 Hypertensive chronic kidney disease with stage 5 chronic kidney disease or end stage renal disease; N18.6 End stage renal disease; E66.9 Obesity, unspecified; E11.69 Type 2 diabetes mellitus with other specified complication; M86.8X7 Other osteomyelitis, ankle and foot; E11.42 Type 2 diabetes mellitus with diabetic polyneuropathy; E11.21 Type 2 diabetes mellitus with diabetic nephropathy; E78.5 Hyperlipidemia, unspecified; Z89.512 Acquired absence of left leg below knee; Z89.421 Acquired absence of other right toe(s); Z89.411 Acquired absence of right great toe; Z68.36 Body mass index [BMI] 36.0-36.9, adult; Z79.4 Long term (current) use of insulin; Z99.2 Dependence on renal dialysis; Z98.61 Coronary angioplasty status
CPT/HCPCS: 11042; 11045; 97606; A6022

== ENCOUNTER → 2017-10-29 | Outpatient (CLI) | payer MEDICARE ==
[2017-10-29 13:15] VITALS: BP 124/54
== END | disposition home or self-care (01) ==
LOC: WHH 09:45
PROVIDERS: ATTEND Podiatrist Foot & Ankle Surgery
DX: E11.621 Type 2 diabetes mellitus with foot ulcer (principal); L97.521 Non-pressure chronic ulcer of other part of left foot limited to breakdown of skin; E11.622 Type 2 diabetes mellitus with other skin ulcer; L97.321 Non-pressure chronic ulcer of left ankle limited to breakdown of skin; E11.52 Type 2 diabetes mellitus with diabetic peripheral angiopathy with gangrene; I96 Gangrene, not elsewhere classified; E11.22 Type 2 diabetes mellitus with diabetic chronic kidney disease; I12.0 Hypertensive chronic kidney disease with stage 5 chronic kidney disease or end stage renal disease; N18.6 End stage renal disease; E66.9 Obesity, unspecified; E11.69 Type 2 diabetes mellitus with other specified complication; M86.8X7 Other osteomyelitis, ankle and foot; E11.42 Type 2 diabetes mellitus with diabetic polyneuropathy; E11.21 Type 2 diabetes mellitus with diabetic nephropathy; E78.5 Hyperlipidemia, unspecified; Z89.512 Acquired absence of left leg below knee; Z89.421 Acquired absence of other right toe(s); Z89.411 Acquired absence of right great toe; Z68.36 Body mass index [BMI] 36.0-36.9, adult; Z79.4 Long term (current) use of insulin; Z99.2 Dependence on renal dialysis; Z98.61 Coronary angioplasty status
CPT/HCPCS: 11042; A6022; A6209

== ENCOUNTER → 2017-11-05 | Outpatient (CLI) | payer MEDICARE ==
[~2017-11-05] MED LIST changes: +HONEY 1 APPL/ML TUBE TP ONE
[2017-11-05 12:37] VITALS: BP 118/59
== END | disposition home or self-care (01) ==
LOC: WHH 09:40
PROVIDERS: ATTEND Podiatrist Foot & Ankle Surgery
DX: E11.621 Type 2 diabetes mellitus with foot ulcer (principal); L97.421 Non-pressure chronic ulcer of left heel and midfoot limited to breakdown of skin; E11.622 Type 2 diabetes mellitus with other skin ulcer; L97.321 Non-pressure chronic ulcer of left ankle limited to breakdown of skin; E11.52 Type 2 diabetes mellitus with diabetic peripheral angiopathy with gangrene; I96 Gangrene, not elsewhere classified; E11.22 Type 2 diabetes mellitus with diabetic chronic kidney disease; I12.0 Hypertensive chronic kidney disease with stage 5 chronic kidney disease or end stage renal disease; N18.6 End stage renal disease; E66.9 Obesity, unspecified; E11.69 Type 2 diabetes mellitus with other specified complication; M86.8X7 Other osteomyelitis, ankle and foot; E11.42 Type 2 diabetes mellitus with diabetic polyneuropathy; E11.21 Type 2 diabetes mellitus with diabetic nephropathy; E78.5 Hyperlipidemia, unspecified; Z89.512 Acquired absence of left leg below knee; Z89.421 Acquired absence of other right toe(s); Z89.411 Acquired absence of right great toe; Z68.36 Body mass index [BMI] 36.0-36.9, adult; Z79.4 Long term (current) use of insulin; Z99.2 Dependence on renal dialysis; Z98.61 Coronary angioplasty status
CPT/HCPCS: A6209; G0463

== ENCOUNTER → 2017-11-19 | Outpatient (CLI) | payer MEDICARE ==
[2017-11-19 12:06] VITALS: BP 126/57
== END | disposition home or self-care (01) ==
LOC: WHH 09:30
PROVIDERS: ATTEND Podiatrist Foot & Ankle Surgery
DX: E11.621 Type 2 diabetes mellitus with foot ulcer (principal); L97.421 Non-pressure chronic ulcer of left heel and midfoot limited to breakdown of skin; E11.622 Type 2 diabetes mellitus with other skin ulcer; L97.321 Non-pressure chronic ulcer of left ankle limited to breakdown of skin; E11.52 Type 2 diabetes mellitus with diabetic peripheral angiopathy with gangrene; I96 Gangrene, not elsewhere classified; E11.22 Type 2 diabetes mellitus with diabetic chronic kidney disease; I12.0 Hypertensive chronic kidney disease with stage 5 chronic kidney disease or end stage renal disease; N18.6 End stage renal disease; E66.9 Obesity, unspecified; E11.69 Type 2 diabetes mellitus with other specified complication; M86.8X7 Other osteomyelitis, ankle and foot; E11.42 Type 2 diabetes mellitus with diabetic polyneuropathy; E11.21 Type 2 diabetes mellitus with diabetic nephropathy; E78.5 Hyperlipidemia, unspecified; Z89.512 Acquired absence of left leg below knee; Z89.421 Acquired absence of other right toe(s); Z89.411 Acquired absence of right great toe; Z68.36 Body mass index [BMI] 36.0-36.9, adult; Z79.4 Long term (current) use of insulin; Z99.2 Dependence on renal dialysis; Z98.61 Coronary angioplasty status
CPT/HCPCS: 11042; 11045; A6209

== ENCOUNTER → 2017-12-03 | Outpatient (CLI) | payer MEDICARE ==
[~2017-12-03] MED LIST changes: -HONEY 1 APPL/ML TUBE TP ONE
[2017-12-03 13:30] VITALS: BP 102/53
== END | disposition home or self-care (01) ==
LOC: WHH 09:45
PROVIDERS: ATTEND Podiatrist Foot & Ankle Surgery
DX: E11.621 Type 2 diabetes mellitus with foot ulcer (principal); L97.421 Non-pressure chronic ulcer of left heel and midfoot limited to breakdown of skin; E11.622 Type 2 diabetes mellitus with other skin ulcer; L97.321 Non-pressure chronic ulcer of left ankle limited to breakdown of skin; E11.52 Type 2 diabetes mellitus with diabetic peripheral angiopathy with gangrene; I96 Gangrene, not elsewhere classified; E11.22 Type 2 diabetes mellitus with diabetic chronic kidney disease; I12.0 Hypertensive chronic kidney disease with stage 5 chronic kidney disease or end stage renal disease; N18.6 End stage renal disease; E66.9 Obesity, unspecified; E11.69 Type 2 diabetes mellitus with other specified complication; M86.8X7 Other osteomyelitis, ankle and foot; E11.42 Type 2 diabetes mellitus with diabetic polyneuropathy; E11.21 Type 2 diabetes mellitus with diabetic nephropathy; E78.5 Hyperlipidemia, unspecified; Z89.512 Acquired absence of left leg below knee; Z89.421 Acquired absence of other right toe(s); Z89.411 Acquired absence of right great toe; Z68.36 Body mass index [BMI] 36.0-36.9, adult; Z79.4 Long term (current) use of insulin; Z99.2 Dependence on renal dialysis; Z98.61 Coronary angioplasty status
CPT/HCPCS: 15275; A6197; A6207; A6209; Q4133

== ENCOUNTER → 2017-12-10 | Outpatient (CLI) | payer MEDICARE ==
[2017-12-10 12:30] VITALS: BP 95/52
== END | disposition home or self-care (01) ==
LOC: WHH 09:30
PROVIDERS: ATTEND Podiatrist Foot & Ankle Surgery
DX: E11.621 Type 2 diabetes mellitus with foot ulcer (principal); L97.421 Non-pressure chronic ulcer of left heel and midfoot limited to breakdown of skin; E11.622 Type 2 diabetes mellitus with other skin ulcer; L97.321 Non-pressure chronic ulcer of left ankle limited to breakdown of skin; E11.52 Type 2 diabetes mellitus with diabetic peripheral angiopathy with gangrene; I96 Gangrene, not elsewhere classified; E11.22 Type 2 diabetes mellitus with diabetic chronic kidney disease; I12.0 Hypertensive chronic kidney disease with stage 5 chronic kidney disease or end stage renal disease; N18.6 End stage renal disease; E66.9 Obesity, unspecified; E11.69 Type 2 diabetes mellitus with other specified complication; M86.8X7 Other osteomyelitis, ankle and foot; E11.42 Type 2 diabetes mellitus with diabetic polyneuropathy; E11.21 Type 2 diabetes mellitus with diabetic nephropathy; E78.5 Hyperlipidemia, unspecified; Z89.512 Acquired absence of left leg below knee; Z89.421 Acquired absence of other right toe(s); Z89.411 Acquired absence of right great toe; Z68.36 Body mass index [BMI] 36.0-36.9, adult; Z79.4 Long term (current) use of insulin; Z99.2 Dependence on renal dialysis; Z98.61 Coronary angioplasty status
CPT/HCPCS: 15275; A6197; A6207; A6209; Q4133

== ENCOUNTER → 2017-12-17 | Outpatient (CLI) | payer MEDICARE ==
[2017-12-17 13:21] VITALS: BP 97/52
== END | disposition home or self-care (01) ==
LOC: WHH 09:40
PROVIDERS: ATTEND Podiatrist Foot & Ankle Surgery
DX: E11.621 Type 2 diabetes mellitus with foot ulcer (principal); L97.521 Non-pressure chronic ulcer of other part of left foot limited to breakdown of skin; E11.622 Type 2 diabetes mellitus with other skin ulcer; L97.321 Non-pressure chronic ulcer of left ankle limited to breakdown of skin; E11.52 Type 2 diabetes mellitus with diabetic peripheral angiopathy with gangrene; I96 Gangrene, not elsewhere classified; E11.22 Type 2 diabetes mellitus with diabetic chronic kidney disease; I12.0 Hypertensive chronic kidney disease with stage 5 chronic kidney disease or end stage renal disease; N18.6 End stage renal disease; E66.9 Obesity, unspecified; E11.69 Type 2 diabetes mellitus with other specified complication; M86.8X7 Other osteomyelitis, ankle and foot; E11.42 Type 2 diabetes mellitus with diabetic polyneuropathy; E11.21 Type 2 diabetes mellitus with diabetic nephropathy; E78.5 Hyperlipidemia, unspecified; Z89.512 Acquired absence of left leg below knee; Z89.421 Acquired absence of other right toe(s); Z89.411 Acquired absence of right great toe; Z68.36 Body mass index [BMI] 36.0-36.9, adult; Z79.4 Long term (current) use of insulin; Z99.2 Dependence on renal dialysis; Z98.61 Coronary angioplasty status
CPT/HCPCS: 15275; A6197; A6207; A6209; Q4133

== ENCOUNTER → 2017-12-24 | Outpatient (CLI) | payer MEDICARE ==
[2017-12-24 13:17] VITALS: BP 130/70
== END | disposition home or self-care (01) ==
LOC: WHH 09:55
PROVIDERS: ATTEND Podiatrist Foot & Ankle Surgery
DX: E11.621 Type 2 diabetes mellitus with foot ulcer (principal); L97.521 Non-pressure chronic ulcer of other part of left foot limited to breakdown of skin; E11.622 Type 2 diabetes mellitus with other skin ulcer; L97.321 Non-pressure chronic ulcer of left ankle limited to breakdown of skin; E11.52 Type 2 diabetes mellitus with diabetic peripheral angiopathy with gangrene; I96 Gangrene, not elsewhere classified; E11.22 Type 2 diabetes mellitus with diabetic chronic kidney disease; I12.0 Hypertensive chronic kidney disease with stage 5 chronic kidney disease or end stage renal disease; N18.6 End stage renal disease; E66.9 Obesity, unspecified; E11.69 Type 2 diabetes mellitus with other specified complication; M86.8X7 Other osteomyelitis, ankle and foot; E11.42 Type 2 diabetes mellitus with diabetic polyneuropathy; E11.21 Type 2 diabetes mellitus with diabetic nephropathy; E78.5 Hyperlipidemia, unspecified; Z89.512 Acquired absence of left leg below knee; Z89.421 Acquired absence of other right toe(s); Z89.411 Acquired absence of right great toe; Z68.36 Body mass index [BMI] 36.0-36.9, adult; Z79.4 Long term (current) use of insulin; Z99.2 Dependence on renal dialysis; Z98.61 Coronary angioplasty status
CPT/HCPCS: 15275; A6197; A6207; A6209; Q4133

== ENCOUNTER → 2018-01-07 | Outpatient (CLI) | payer MEDICARE ==
[2018-01-07 13:45] VITALS: BP 122/67
== END | disposition home or self-care (01) ==
LOC: WHH 09:30
PROVIDERS: ATTEND Podiatrist Foot & Ankle Surgery
DX: E11.621 Type 2 diabetes mellitus with foot ulcer (principal); L97.421 Non-pressure chronic ulcer of left heel and midfoot limited to breakdown of skin; L97.521 Non-pressure chronic ulcer of other part of left foot limited to breakdown of skin; E11.622 Type 2 diabetes mellitus with other skin ulcer; L97.321 Non-pressure chronic ulcer of left ankle limited to breakdown of skin; E11.52 Type 2 diabetes mellitus with diabetic peripheral angiopathy with gangrene; I96 Gangrene, not elsewhere classified; E11.22 Type 2 diabetes mellitus with diabetic chronic kidney disease; I12.0 Hypertensive chronic kidney disease with stage 5 chronic kidney disease or end stage renal disease; N18.6 End stage renal disease; E66.9 Obesity, unspecified; E11.69 Type 2 diabetes mellitus with other specified complication; M86.8X7 Other osteomyelitis, ankle and foot; E11.42 Type 2 diabetes mellitus with diabetic polyneuropathy; E11.21 Type 2 diabetes mellitus with diabetic nephropathy; E78.5 Hyperlipidemia, unspecified; Z89.512 Acquired absence of left leg below knee; Z89.421 Acquired absence of other right toe(s); Z89.411 Acquired absence of right great toe; Z68.36 Body mass index [BMI] 36.0-36.9, adult; Z79.4 Long term (current) use of insulin; Z99.2 Dependence on renal dialysis; Z98.61 Coronary angioplasty status
CPT/HCPCS: 15275; A6197; A6207; A6209; Q4133

== ENCOUNTER → 2018-01-14 | Outpatient (CLI) | payer MEDICARE ==
[2018-01-14 14:10] VITALS: BP 109/59
== END | disposition home or self-care (01) ==
LOC: WHH 09:15
PROVIDERS: ATTEND Podiatrist Foot & Ankle Surgery
DX: E11.621 Type 2 diabetes mellitus with foot ulcer (principal); L97.421 Non-pressure chronic ulcer of left heel and midfoot limited to breakdown of skin; L97.521 Non-pressure chronic ulcer of other part of left foot limited to breakdown of skin; E11.622 Type 2 diabetes mellitus with other skin ulcer; L97.321 Non-pressure chronic ulcer of left ankle limited to breakdown of skin; E11.52 Type 2 diabetes mellitus with diabetic peripheral angiopathy with gangrene; I96 Gangrene, not elsewhere classified; E11.22 Type 2 diabetes mellitus with diabetic chronic kidney disease; I12.0 Hypertensive chronic kidney disease with stage 5 chronic kidney disease or end stage renal disease; N18.6 End stage renal disease; E66.9 Obesity, unspecified; E11.69 Type 2 diabetes mellitus with other specified complication; M86.8X7 Other osteomyelitis, ankle and foot; E11.42 Type 2 diabetes mellitus with diabetic polyneuropathy; E11.21 Type 2 diabetes mellitus with diabetic nephropathy; E78.5 Hyperlipidemia, unspecified; Z89.512 Acquired absence of left leg below knee; Z89.421 Acquired absence of other right toe(s); Z89.411 Acquired absence of right great toe; Z68.36 Body mass index [BMI] 36.0-36.9, adult; Z79.4 Long term (current) use of insulin; Z99.2 Dependence on renal dialysis; Z98.61 Coronary angioplasty status
CPT/HCPCS: 15275; A4450; A6197; A6207; Q4133

== ENCOUNTER 2018-01-21 11:24 | Inpatient (IN) | payer MEDICARE ==
[~2018-01-21] VITALS: Ht 157.5 cm; Wt 78.6 kg
[2018-01-21] MEDS ORDERED: ONDANSETRON HCL 4 MG/2 ML VIAL ONE (11:55)
[2018-01-21] MEDS ORDERED: MORPHINE SULFATE 4 MG/1ML SYG ONE (11:56)
[2018-01-21 12:04] LABS: BASOPHILS % (AUTO) 0.4 % (0.0-5.0); EOSINOPHILS % (AUTO) 2.1 % (0.0-8.0); HEMATOCRIT 25.8 % (36-48); LYMPHOCYTES % (AUTO) 17.2 % (21.0-51.0); MEAN CORPUSCULAR HEMOGLOBIN 31.4 pg (27.0-33.0); MEAN CORPUSCULAR HGB CONC 32.2 g/dL (32.0-36.0); MEAN CORPUSCULAR VOLUME 97.5 fL (79-99); MONOCYTES % (AUTO) 9.3 % (3.0-13.0); NUCLEATED RED BLOOD CELLS 0.1 % (0.0-0.19); PLATELET COUNT (AUTO) 333 K/uL (130-400); RED BLOOD CELL COUNT(AUTO) 2.64 MIL/uL (4.00-5.50); RED CELL DISTRIBUTION WIDTH 18.7 % (11.0-15.5); WHITE BLOOD COUNT (AUTO) 5.4 K/uL (4.8-10.8)
[2018-01-21 12:09] LABS: CREATININE 2.6 mg/dL (0.5-1.5); POTASSIUM 3.6 mmol/L (3.5-5.1)
[2018-01-21 12:14] LABS: ALBUMIN 1.3 g/dL (3.5-5.0); BILIRUBIN,TOTAL 0.5 mg/dL (0.2-1.0); TOTAL PROTEIN, SERUM 6.4 g/dL (6.0-8.3)
[2018-01-21 12:21] LABS: INR 1.09 (0.85-1.15); PARTIAL THROMBOPLASTIN TIME 25.4 SEC (26.3-35.5); PROTHROMBIN TIME 11.4 SEC (9.6-11.6)
[2018-01-21] MEDS ORDERED: HEPARIN SODIUM 5000UNIT/ML 1ML VIAL ONE (12:36)
[2018-01-21] MEDS ORDERED: HEPARIN 25000 UNITS/250 ML D5W 250 ML IV ONE (12:37)
[2018-01-21] MEDS ORDERED: ASPIRIN 325 MG TABLET ONE (12:55)
[2018-01-21] MEDS ORDERED: ACETAMINOPHEN 325 MG TAB PO PRN (14:30)
[2018-01-21] MEDS ORDERED: HYDRALAZINE HCL 20 MG/ML VIAL IV PRN (14:30)
[2018-01-21] MEDS ORDERED: ONDANSETRON HCL 4 MG/2 ML VIAL IV PRN (14:30)
[2018-01-21 17:15] VITALS: BP 114/66
[2018-01-21 19:54] VITALS: BP 96/48
[2018-01-21 23:49] VITALS: BP 103/45
[2018-01-22 04:13] VITALS: BP 100/47
[2018-01-22 04:17] LABS: HEMATOCRIT 23.1 % (36-48); MEAN CORPUSCULAR HEMOGLOBIN 32.1 pg (27.0-33.0); MEAN CORPUSCULAR HGB CONC 32.7 g/dL (32.0-36.0); PLATELET COUNT (AUTO) 385 K/uL (130-400); RED BLOOD CELL COUNT(AUTO) 2.36 MIL/uL (4.00-5.50); WHITE BLOOD COUNT (AUTO) 5.1 K/uL (4.8-10.8)
[2018-01-22 04:30] LABS: CREATININE 2.9 mg/dL (0.5-1.5); POTASSIUM 3.4 mmol/L (3.5-5.1)
[2018-01-22 07:49] VITALS: BP 112/33
[2018-01-22] MEDS: D3 PO SCH (09:00)
[2018-01-22] MEDS: FOLIC PO SCH (09:00)
[2018-01-22] MEDS: ZINC PO SCH (09:00)
[2018-01-22] MEDS: SELENOMETH PO SCH (09:00)
[2018-01-22] MEDS: [UNRECOGNIZED DRUG - OTHER] PO SCH (09:00)
[2018-01-22] MEDS: ASPIRIN 81 MG EC TAB PO SCH (09:43)
[2018-01-22] MEDS: LOSARTAN 50 MG TABLET PO SCH (09:43)
[2018-01-22] MEDS: FAMOTIDINE/PF 20 MG/2 ML VIAL IV SCH (09:43)
[2018-01-22] MEDS: CINACALCET HCL 30 MG TAB PO SCH (09:43)
[2018-01-22 11:00] VITALS: BP 124/54
[2018-01-22] MEDS ORDERED: ALBUMIN (HUMAN) 25% 100 ML IV PRN (13:00)
[2018-01-22] MEDS ORDERED: 0.9% SODIUM CHLORIDE 250 ML IV BAG IV PRN (13:00)
[2018-01-22] MEDS: SODIUM CHLORIDE 0.9% 1000ML 1,000 ML IV PRN (13:28)
[2018-01-22 16:02] VITALS: BP 113/48
[2018-01-22] MEDS ORDERED: MORPHINE SULFATE 4 MG/1ML SYG ONE (16:55)
[2018-01-22] MEDS: MORPHINE SULFATE 2 MG/ML 1ML SYG IV PRN (17:03)
[2018-01-22 19:47] VITALS: BP 133/59
[2018-01-22] MEDS: INSULIN HUMULIN R 100 UNIT/ML 3ML SQ SCH (20:23)
[2018-01-22] MEDS ORDERED: HEPARIN 25000 UNITS/250 ML D5W 250 ML IV ONE (20:58)
[2018-01-22 21:35] LABS: INR 1.12 (0.85-1.15); PARTIAL THROMBOPLASTIN TIME 61.4 SEC (26.3-35.5); PROTHROMBIN TIME 11.7 SEC (9.6-11.6)
[2018-01-22 23:32] VITALS: BP 118/51
[2018-01-23] VITALS (7 sets, daily range): BP systolic 89–143; BP diastolic 40–81
[2018-01-23 03:50] LABS: HEMATOCRIT 33.3 % (36-48); MEAN CORPUSCULAR HEMOGLOBIN 30.2 pg (27.0-33.0); MEAN CORPUSCULAR VOLUME 91.4 fL (79-99); NUCLEATED RED BLOOD CELLS 0.1 % (0.0-0.19); PLATELET COUNT (AUTO) 327 K/uL (130-400); RED BLOOD CELL COUNT(AUTO) 3.65 MIL/uL (4.00-5.50); RED CELL DISTRIBUTION WIDTH 18.5 % (11.0-15.5); WHITE BLOOD COUNT (AUTO) 5.6 K/uL (4.8-10.8)
[2018-01-23 04:40] LABS: CREATININE 2.3 mg/dL (0.5-1.5); POTASSIUM 3.2 mmol/L (3.5-5.1)
[2018-01-23] MEDS: INSULIN HUMULIN R 100 UNIT/ML 3ML SQ SCH ×4 (06:05→21:00)
[2018-01-23] MEDS: SELENOMETH PO SCH (09:00)
[2018-01-23] MEDS: D3 PO SCH (09:00)
[2018-01-23] MEDS: [UNRECOGNIZED DRUG - OTHER] PO SCH (09:00)
[2018-01-23] MEDS: CINACALCET HCL 30 MG TAB PO SCH (09:00)
[2018-01-23] MEDS: ASPIRIN 81 MG EC TAB PO SCH (09:00)
[2018-01-23] MEDS: FOLIC PO SCH (09:00)
[2018-01-23] MEDS: ZINC PO SCH (09:00)
[2018-01-23] MEDS: LOSARTAN 50 MG TABLET PO SCH (09:00)
[2018-01-23] MEDS: FAMOTIDINE/PF 20 MG/2 ML VIAL IV SCH (10:27)
[2018-01-23] MEDS: MORPHINE SULFATE 2 MG/ML 1ML SYG IV PRN (12:07)
[2018-01-23] MEDS ORDERED: LIDOCAINE HCL 2% 20ML ONE (14:43)
[2018-01-23] MEDS ORDERED: IODIXANOL 320 MG/ML 100 ML VIAL ONE (14:43)
[2018-01-23] MEDS ORDERED: HEPARIN SODIUM 1000UNIT/ML 10ML VIAL ONE (14:43)
[2018-01-23] MEDS ORDERED: NITROGLYCERIN 5 MG/ML 10 ML VIAL IV ONE (14:43)
[2018-01-23] MEDS ORDERED: MIDAZOLAM HCL 1 MG/ML 2ML VIAL ONE (15:22)
[2018-01-23] MEDS ORDERED: FENTANYL CITRATE PF 50 MCG/1 ML 2ML VIAL ONE ×2 (15:23→17:27)
[2018-01-23] MEDS ORDERED: PROTAMINE SULFATE 10 MG/ML 25ML VIAL IV ONE (17:08)
[2018-01-23] MEDS ORDERED: METOPROLOL TARTRATE 1 MG/ML 5ML VIAL IV ONE ×2 (17:16→17:27)
[2018-01-23] MEDS ORDERED: MORPHINE SULFATE 4 MG/1ML SYG IV PRN (18:30)
[2018-01-23] MEDS ORDERED: ATROPINE SULFATE 0.1 MG/ML 10 ML SYG IVP ONE (22:32)
[2018-01-24] MEDS: EPOETIN ALFA 10,000 UNIT/ML VIAL SQ SCH
[2018-01-24] MEDS: MORPHINE SULFATE 4 MG/1ML SYG IV PRN ×2 (02:43→13:39)
[2018-01-24 03:00] VITALS: BP 110/62
[2018-01-24 04:05] LABS: MEAN CORPUSCULAR HEMOGLOBIN 31.6 pg (27.0-33.0); MEAN CORPUSCULAR HGB CONC 34.1 g/dL (32.0-36.0); MEAN CORPUSCULAR VOLUME 92.6 fL (79-99); PLATELET COUNT (AUTO) 366 K/uL (130-400); RED BLOOD CELL COUNT(AUTO) 3.68 MIL/uL (4.00-5.50); RED CELL DISTRIBUTION WIDTH 18.6 % (11.0-15.5); WHITE BLOOD COUNT (AUTO) 6.5 K/uL (4.8-10.8)
[2018-01-24 04:13] LABS: CREATININE 1.6 mg/dL (0.5-1.5); POTASSIUM 3.2 mmol/L (3.5-5.1)
[2018-01-24 04:26] LABS: CRP QUANTITATIVE 230.5 mg/L (0.00-9.0)
[2018-01-24] MEDS: INSULIN HUMULIN R 100 UNIT/ML 3ML SQ SCH ×4 (07:30→21:00)
[2018-01-24 07:34] VITALS: BP 134/66
[2018-01-24] MEDS: ZINC PO SCH (09:00)
[2018-01-24] MEDS: ASPIRIN 81 MG EC TAB PO SCH (09:00)
[2018-01-24] MEDS: LOSARTAN 50 MG TABLET PO SCH (09:00)
[2018-01-24] MEDS: D3 PO SCH (09:00)
[2018-01-24] MEDS: [UNRECOGNIZED DRUG - OTHER] PO SCH (09:00)
[2018-01-24] MEDS: SELENOMETH PO SCH (09:00)
[2018-01-24] MEDS: FAMOTIDINE/PF 20 MG/2 ML VIAL IV SCH (09:00)
[2018-01-24] MEDS: FOLIC PO SCH (09:00)
[2018-01-24] MEDS: CINACALCET HCL 30 MG TAB PO SCH (09:00)
[2018-01-24] MEDS ORDERED: POTASSIUM CHLORIDE 10MEQ/100ML 100 ML IV PRN (09:30)
[2018-01-24] MEDS ORDERED: LIDOCAINE HCL-MPF 1% 2ML VIAL IVP PRN (09:30)
[2018-01-24 11:30] VITALS: BP 117/57
[2018-01-24 16:10] VITALS: BP 141/73
[2018-01-24] MEDS ORDERED: HYDROMORPHONE 1 MG/1 ML AMP IVP PRN (16:30)
[2018-01-24] MEDS ORDERED: DEXTROSE 50%-WATER 50 ML DISP.SYRIN IV ONE (16:55)
[2018-01-24 19:00] VITALS: BP 134/65
[2018-01-24 23:00] VITALS: BP 147/70
[2018-01-25] VITALS (22 sets, daily range): BP systolic 111–144; BP diastolic 56–68
[2018-01-25 03:52] LABS: HEMATOCRIT 34.2 % (36-48); MEAN CORPUSCULAR HEMOGLOBIN 30.8 pg (27.0-33.0); MEAN CORPUSCULAR HGB CONC 32.9 g/dL (32.0-36.0); MEAN CORPUSCULAR VOLUME 93.7 fL (79-99); NUCLEATED RED BLOOD CELLS 0.1 % (0.0-0.19); PLATELET COUNT (AUTO) 321 K/uL (130-400); RED BLOOD CELL COUNT(AUTO) 3.65 MIL/uL (4.00-5.50); RED CELL DISTRIBUTION WIDTH 19.3 % (11.0-15.5); WHITE BLOOD COUNT (AUTO) 4.8 K/uL (4.8-10.8)
[2018-01-25 03:57] LABS: INR 1.18 (0.85-1.15); PARTIAL THROMBOPLASTIN TIME 29.4 SEC (26.3-35.5); PROTHROMBIN TIME 12.3 SEC (9.6-11.6)
[2018-01-25 04:00] LABS: ALBUMIN 1.1 g/dL (3.5-5.0); CREATININE 2.3 mg/dL (0.5-1.5); MAGNESIUM 1.6 mg/dL (1.80-2.40); PHOSPHORUS 3.2 mg/dL (2.5-4.9); POTASSIUM 3.5 mmol/L (3.5-5.1)
[2018-01-25] MEDS: INSULIN HUMULIN R 100 UNIT/ML 3ML SQ SCH ×4 (06:19→20:19)
[2018-01-25] MEDS: FAMOTIDINE/PF 20 MG/2 ML VIAL IV SCH (08:00)
[2018-01-25] MEDS: MORPHINE SULFATE 4 MG/1ML SYG IV PRN (08:01)
[2018-01-25] MEDS: SELENOMETH PO SCH (08:05)
[2018-01-25] MEDS: CINACALCET HCL 30 MG TAB PO SCH (08:05)
[2018-01-25] MEDS: D3 PO SCH (08:05)
[2018-01-25] MEDS: LOSARTAN 50 MG TABLET PO SCH (08:05)
[2018-01-25] MEDS: ASPIRIN 81 MG EC TAB PO SCH (08:05)
[2018-01-25] MEDS: ZINC PO SCH (08:05)
[2018-01-25] MEDS: [UNRECOGNIZED DRUG - OTHER] PO SCH (08:05)
[2018-01-25] MEDS: FOLIC PO SCH (08:05)
[2018-01-25] MEDS ORDERED: ROCURONIUM 10MG/1ML SYR 10 MG/ML ML ONE (09:35)
[2018-01-25] MEDS ORDERED: LIDOCAINE PF 2% 5ML ABBOJECT ONE (09:35)
[2018-01-25] MEDS ORDERED: FENTANYL CITRATE PF 50 MCG/1 ML 5ML AMP IV ONE (09:35)
[2018-01-25] MEDS ORDERED: SUCCINYLCHOLINE 200MG/10ML SYR ONE (09:35)
[2018-01-25] MEDS ORDERED: PROPOFOL 10 MG/ML 20ML VIAL IV ONE (09:35)
[2018-01-25] MEDS ORDERED: EPHEDRINE SULFATE 50 MG/ML AMPULE ONE (11:23)
[2018-01-25] MEDS ORDERED: BACITRACIN 50,000 UNIT VIAL ONE (11:48)
[2018-01-25] MEDS ORDERED: NEOSTIGMINE 5MG/5ML SYR IV ONE (12:01)
[2018-01-25] MEDS ORDERED: GLYCOPYRROLATE 1 MG/5 ML SYRINGE ONE (12:01)
[2018-01-25] MEDS: SODIUM CHLORIDE 0.9% 1000ML 1,000 ML IV PRN (12:48)
[2018-01-25] MEDS ORDERED: FENTANYL CITRATE PF 50 MCG/1 ML 2ML VIAL ONE (13:08)
[2018-01-25] MEDS: KETOROLAC TROMETHAMINE 15MG/ML IV PRN (18:43)
[2018-01-25] MEDS: NYSTATIN 15 GM POWDER TP SCH (20:18)
[2018-01-26] MEDS: KETOROLAC TROMETHAMINE 15MG/ML IV PRN (01:26)
[2018-01-26 03:00] VITALS: BP 127/58
[2018-01-26] MEDS: INSULIN HUMULIN R 100 UNIT/ML 3ML SQ SCH ×3 (06:32→21:00)
[2018-01-26 07:00] VITALS: BP 121/67
[2018-01-26] MEDS: CINACALCET HCL 30 MG TAB PO SCH (08:34)
[2018-01-26] MEDS: MORPHINE SULFATE 4 MG/1ML SYG IV PRN (08:36)
[2018-01-26] MEDS: FAMOTIDINE/PF 20 MG/2 ML VIAL IV SCH (08:36)
[2018-01-26] MEDS: ASPIRIN 81 MG EC TAB PO SCH (08:36)
[2018-01-26] MEDS: NYSTATIN 15 GM POWDER TP SCH ×2 (08:36→21:22)
[2018-01-26] MEDS: D3 PO SCH (09:00)
[2018-01-26] MEDS: LOSARTAN 50 MG TABLET PO SCH (09:00)
[2018-01-26] MEDS: SELENOMETH PO SCH (09:00)
[2018-01-26] MEDS: FOLIC PO SCH (09:00)
[2018-01-26] MEDS: ZINC PO SCH (09:00)
[2018-01-26] MEDS: [UNRECOGNIZED DRUG - OTHER] PO SCH (09:00)
[2018-01-26] MEDS ORDERED: POLYETHYLENE GLYCOL 3350 17 GM POWD.PACK PO PRN (09:15)
[2018-01-26] MEDS ORDERED: RENAL DOSE IV SCH (09:15)
[2018-01-26] MEDS ORDERED: HYDROCODONE/ACETAMINOPHEN 5/325 MG TAB PO PRN ×2 (09:15)
[2018-01-26 09:26] LABS: HEMATOCRIT 33.2 % (36-48); MEAN CORPUSCULAR VOLUME 94.2 fL (79-99); PLATELET COUNT (AUTO) 328 K/uL (130-400); RED BLOOD CELL COUNT(AUTO) 3.52 MIL/uL (4.00-5.50); RED CELL DISTRIBUTION WIDTH 19.4 % (11.0-15.5); WHITE BLOOD COUNT (AUTO) 6.4 K/uL (4.8-10.8)
[2018-01-26] MEDS ORDERED: COMPOUND IV MISC 1 EACH IVSOLN MISC PRN (09:30)
[2018-01-26 09:57] LABS: ALBUMIN 1.1 g/dL (3.5-5.0); BILIRUBIN,TOTAL 0.5 mg/dL (0.2-1.0); CREATININE 2.9 mg/dL (0.5-1.5); POTASSIUM 3.6 mmol/L (3.5-5.1); TOTAL PROTEIN, SERUM 5.7 g/dL (6.0-8.3)
[2018-01-26 11:00] VITALS: BP 116/53
[2018-01-26] MEDS: TERBINAFINE HCL 15 GM TUBE TP SCH ×2 (12:15→21:22)
[2018-01-26] MEDS: BISACODYL 5 MG TABLET.DR PO SCH (12:17)
[2018-01-26 16:00] VITALS: BP 130/56
[2018-01-26 20:00] VITALS: BP 120/55
[2018-01-26] MEDS: DOCUSATE SODIUM 100 MG CAP PO SCH (21:21)
[2018-01-26] MEDS: EPOETIN ALFA 10,000 UNIT/ML VIAL SQ SCH (21:22)
[2018-01-27] VITALS (7 sets, daily range): BP systolic 119–149; BP diastolic 52–86
[2018-01-27 05:39] LABS: MEAN CORPUSCULAR HEMOGLOBIN 30.7 pg (27.0-33.0); MEAN CORPUSCULAR HGB CONC 32.7 g/dL (32.0-36.0); MEAN CORPUSCULAR VOLUME 94.1 fL (79-99); RED BLOOD CELL COUNT(AUTO) 3.72 MIL/uL (4.00-5.50); RED CELL DISTRIBUTION WIDTH 18.5 % (11.0-15.5); WHITE BLOOD COUNT (AUTO) 6.8 K/uL (4.8-10.8)
[2018-01-27] MEDS: INSULIN HUMULIN R 100 UNIT/ML 3ML SQ SCH ×4 (05:44→21:00)
[2018-01-27 05:54] LABS: PLATELET COUNT (AUTO) 225 K/uL (130-400)
[2018-01-27 05:58] LABS: POTASSIUM 3.8 mmol/L (3.5-5.1)
[2018-01-27] MEDS: FOLIC PO SCH (09:00)
[2018-01-27] MEDS: SELENOMETH PO SCH (09:00)
[2018-01-27] MEDS: ZINC PO SCH (09:00)
[2018-01-27] MEDS: [UNRECOGNIZED DRUG - OTHER] PO SCH (09:00)
[2018-01-27] MEDS: D3 PO SCH (09:00)
[2018-01-27] MEDS: LOSARTAN 50 MG TABLET PO SCH (09:10)
[2018-01-27] MEDS: DOCUSATE SODIUM 100 MG CAP PO SCH ×2 (09:10→20:42)
[2018-01-27] MEDS: ASPIRIN 81 MG EC TAB PO SCH (09:10)
[2018-01-27] MEDS: BISACODYL 5 MG TABLET.DR PO SCH (09:10)
[2018-01-27] MEDS: CINACALCET HCL 30 MG TAB PO SCH (09:10)
[2018-01-27] MEDS: FAMOTIDINE 20MG TAB 20 MG TAB PO SCH (09:10)
[2018-01-27] MEDS: TERBINAFINE HCL 15 GM TUBE TP SCH ×2 (09:12→20:43)
[2018-01-27] MEDS: NYSTATIN 15 GM POWDER TP SCH ×2 (09:13→20:43)
[2018-01-27] MEDS: FLUCONAZOLE 200 MG/NS 100 ML 50 ML IV SCH (09:23)
[2018-01-28 04:00] VITALS: BP 135/59
[2018-01-28 05:17] LABS: HEMATOCRIT 32.8 % (36-48); MEAN CORPUSCULAR HGB CONC 32.7 g/dL (32.0-36.0); MEAN CORPUSCULAR VOLUME 94.6 fL (79-99); PLATELET COUNT (AUTO) 249 K/uL (130-400); RED BLOOD CELL COUNT(AUTO) 3.47 MIL/uL (4.00-5.50); RED CELL DISTRIBUTION WIDTH 18.7 % (11.0-15.5); WHITE BLOOD COUNT (AUTO) 6.2 K/uL (4.8-10.8)
[2018-01-28 05:23] LABS: CREATININE 2.6 mg/dL (0.5-1.5); POTASSIUM 3.4 mmol/L (3.5-5.1)
[2018-01-28] MEDS: INSULIN HUMULIN R 100 UNIT/ML 3ML SQ SCH ×4 (06:14→21:00)
[2018-01-28 08:00] VITALS: BP 165/79
[2018-01-28] MEDS: ZINC PO SCH (08:34)
[2018-01-28] MEDS: FOLIC PO SCH (08:34)
[2018-01-28] MEDS: D3 PO SCH (08:34)
[2018-01-28] MEDS: SELENOMETH PO SCH (08:34)
[2018-01-28] MEDS: [UNRECOGNIZED DRUG - OTHER] PO SCH (08:34)
[2018-01-28] MEDS: KETOROLAC TROMETHAMINE 15MG/ML IV PRN (11:55)
[2018-01-28 12:00] VITALS: BP 100/65
[2018-01-28] MEDS ORDERED: COMPOUND IV MISC 1 EACH IVSOLN MISC PRN (12:00)
[2018-01-28 16:00] VITALS: BP 114/58
[2018-01-28] MEDS ORDERED: TRAMADOL HCL 50 MG TABLET PO PRN (16:00)
[2018-01-28] MEDS: BISACODYL 5 MG TABLET.DR PO SCH (16:08)
[2018-01-28] MEDS: FAMOTIDINE 20MG TAB 20 MG TAB PO SCH (16:08)
[2018-01-28] MEDS: DOCUSATE SODIUM 100 MG CAP PO SCH ×2 (16:08→19:59)
[2018-01-28] MEDS: ASPIRIN 81 MG EC TAB PO SCH (16:08)
[2018-01-28] MEDS: CINACALCET HCL 30 MG TAB PO SCH (16:09)
[2018-01-28] MEDS: LOSARTAN 50 MG TABLET PO SCH (16:09)
[2018-01-28] MEDS: TERBINAFINE HCL 15 GM TUBE TP SCH ×2 (16:10→19:59)
[2018-01-28] MEDS: NYSTATIN 15 GM POWDER TP SCH ×2 (16:10→19:59)
[2018-01-28] MEDS: HEPARIN SODIUM 5000UNIT/ML 1ML VIAL SQ SCH (18:44)
[2018-01-28] MEDS: MORPHINE SULFATE 4 MG/1ML SYG IV PRN (19:58)
[2018-01-28 20:00] VITALS: BP 117/56
[2018-01-28] MEDS: EPOETIN ALFA 10,000 UNIT/ML VIAL SQ SCH (21:00)
[2018-01-29] VITALS: BP 130/61
[2018-01-29 04:16] VITALS: BP 120/57
[2018-01-29 05:04] LABS: HEMATOCRIT 34.5 % (36-48); MEAN CORPUSCULAR HEMOGLOBIN 31.3 pg (27.0-33.0); MEAN CORPUSCULAR HGB CONC 33.5 g/dL (32.0-36.0); MEAN CORPUSCULAR VOLUME 93.5 fL (79-99); PLATELET COUNT (AUTO) 238 K/uL (130-400); RED BLOOD CELL COUNT(AUTO) 3.69 MIL/uL (4.00-5.50); RED CELL DISTRIBUTION WIDTH 18.5 % (11.0-15.5); WHITE BLOOD COUNT (AUTO) 6.4 K/uL (4.8-10.8)
[2018-01-29 05:14] LABS: POTASSIUM 3.2 mmol/L (3.5-5.1)
[2018-01-29] MEDS: INSULIN HUMULIN R 100 UNIT/ML 3ML SQ SCH ×2 (05:46→11:30)
[2018-01-29] MEDS: HEPARIN SODIUM 5000UNIT/ML 1ML VIAL SQ SCH (05:47)
[2018-01-29 08:10] VITALS: BP 122/58
[2018-01-29] MEDS: D3 PO SCH (09:00)
[2018-01-29] MEDS: [UNRECOGNIZED DRUG - OTHER] PO SCH (09:00)
[2018-01-29] MEDS: ZINC PO SCH (09:00)
[2018-01-29] MEDS: SELENOMETH PO SCH (09:00)
[2018-01-29] MEDS: FOLIC PO SCH (09:00)
[2018-01-29] MEDS: ASPIRIN 81 MG EC TAB PO SCH (11:09)
[2018-01-29] MEDS: CINACALCET HCL 30 MG TAB PO SCH (11:09)
[2018-01-29] MEDS: LOSARTAN 50 MG TABLET PO SCH (11:10)
[2018-01-29] MEDS: DOCUSATE SODIUM 100 MG CAP PO SCH (11:10)
[2018-01-29] MEDS: BISACODYL 5 MG TABLET.DR PO SCH (11:11)
[2018-01-29] MEDS: FAMOTIDINE 20MG TAB 20 MG TAB PO SCH (11:11)
[2018-01-29] MEDS: NYSTATIN 15 GM POWDER TP SCH (11:12)
[2018-01-29] MEDS: TERBINAFINE HCL 15 GM TUBE TP SCH (11:12)
[2018-01-29 13:47] VITALS: BP 112/54
[2018-01-29] MEDS: FLUCONAZOLE 200 MG/NS 100 ML 50 ML IV SCH (15:31)
[2018-01-29 16:46] VITALS: BP 130/55
== END 2018-01-29 18:40 | DRG 252 ==
LOC: EDH 11:24 → EDHIP 12:36 → 2DH 15:13 → 3BH 01-26 19:22
PROVIDERS: ADMIT Hospitalist; ATTEND Hospitalist
PROC: 30233N1 Transfusion of Nonautologous Red Blood Cells into Peripheral Vein, Percutaneous Approach (ICD-10-PCS; 2018-01-22)
PROC: 5A1D70Z Performance of Urinary Filtration, Intermittent, Less than 6 Hours Per Day (ICD-10-PCS; 2018-01-22)
PROC: 5A1D70Z Performance of Urinary Filtration, Intermittent, Less than 6 Hours Per Day (ICD-10-PCS; 2018-01-23)
PROC: 047N3ZZ Dilation of Left Popliteal Artery, Percutaneous Approach (ICD-10-PCS; principal; 2018-01-24)
PROC: B41F1ZZ Fluoroscopy of Right Lower Extremity Arteries using Low Osmolar Contrast (ICD-10-PCS; 2018-01-24)
PROC: B41G1ZZ Fluoroscopy of Left Lower Extremity Arteries using Low Osmolar Contrast (ICD-10-PCS; 2018-01-24)
PROC: B41G1ZZ Fluoroscopy of Left Lower Extremity Arteries using Low Osmolar Contrast (ICD-10-PCS; 2018-01-24)
PROC: B4101ZZ Fluoroscopy of Abdominal Aorta using Low Osmolar Contrast (ICD-10-PCS; 2018-01-24)
PROC: 5A1D70Z Performance of Urinary Filtration, Intermittent, Less than 6 Hours Per Day (ICD-10-PCS; 2018-01-26)
PROC: 5A1D70Z Performance of Urinary Filtration, Intermittent, Less than 6 Hours Per Day (ICD-10-PCS; 2018-01-28)
DX: T82.856A Stenosis of peripheral vascular stent, initial encounter (principal); N18.6 End stage renal disease; L97.429 Non-pressure chronic ulcer of left heel and midfoot with unspecified severity; I12.0 Hypertensive chronic kidney disease with stage 5 chronic kidney disease or end stage renal disease; I74.3 Embolism and thrombosis of arteries of the lower extremities; I70.209 Unspecified atherosclerosis of native arteries of extremities, unspecified extremity; I99.8 Other disorder of circulatory system; E11.21 Type 2 diabetes mellitus with diabetic nephropathy; E11.22 Type 2 diabetes mellitus with diabetic chronic kidney disease; E11.51 Type 2 diabetes mellitus with diabetic peripheral angiopathy without gangrene; E11.621 Type 2 diabetes mellitus with foot ulcer; E78.5 Hyperlipidemia, unspecified; E66.01 Morbid (severe) obesity due to excess calories; B37.9 Candidiasis, unspecified; E11.319 Type 2 diabetes mellitus with unspecified diabetic retinopathy without macular edema; E11.40 Type 2 diabetes mellitus with diabetic neuropathy, unspecified; E11.69 Type 2 diabetes mellitus with other specified complication; E78.2 Mixed hyperlipidemia; E87.6 Hypokalemia; Y83.8 Other surgical procedures as the cause of abnormal reaction of the patient, or of later complication, without mention of misadventure at the time of the procedure; L97.529 Non-pressure chronic ulcer of other part of left foot with unspecified severity; Z68.31 Body mass index [BMI] 31.0-31.9, adult; Z99.2 Dependence on renal dialysis; Z74.01 Bed confinement status; Z98.61 Coronary angioplasty status; Z89.612 Acquired absence of left leg above knee; Y92.89 Other specified places as the place of occurrence of the external cause; Z89.421 Acquired absence of other right toe(s)
CPT/HCPCS: 36415; 36430; 37224; 71045; 75630; 75635; 75774; 80048; 80053; 82040; 82550; 82948; 83735; 83874; 84100; 85025; 85027; 85347; 85610; 85730; 86140; 86850; 86900; 86901; 86922; 88307; 88311; 90935; 93005; 93925; 99156; 99157; 99291; C1725; C1769; C1893; C1894; G0378; J0330; J0461; J0885; J1170; J1450; J1644; J1885; J2001; J2250; J2270; J2405; J2704; J2710; J2720; J3010; J3490; J7030; J7070; J7120; P9016; Q9967